=== PATIENT | male | born 1955 | race Caucasian/White ===

== ENCOUNTER 2017-02-27 16:24 | Emergency (ER) | payer OTHER ==
--- NOTE | 2017-02-27 17:08 | DIAGNOSTIC IMAGING REPORT ---
PROCEDURE: CT HEAD WITHOUT CONTRAST INDICATION: TRAUMA/INJURY TECHNIQUE: Axial CT images were acquired through the head. Coronal and sagittal reformations were created. COMPARISON: None. FINDINGS: No intracranial hemorrhage or extraaxial fluid collections. Ventricles are normal in size, shape and position. There is no mass, mass effect or midline shift. The appiah-white matter differentiation is normal. There is no edema. The calvarium is intact. The paranasal sinuses and mastoid air cells are normally aerated. The extracranial soft tissues and orbits are normal. IMPRESSION: 1. No CT evidence of acute intracranial process. 2. Findings discussed with Tino at 05:[address] scans at this facility use dose modulation, iterative reconstruction, and/or weight-based dosing when appropriate to reduce radiation dose to as low as reasonably achievable.
--- NOTE | 2017-02-27 17:37 | ED NURSING NOTES ---
Clinical Report - Nurses [facility] [address] [place] [address] 02/27/2017 16:23 Patient: EMEKA LOVE TRIAGE Triage time 16:Feb 27 2017. Acuity: LEVEL 4. Chief Complaint: INJURY TO HEAD and LEFT EYE (Patient was in WC, went out with relative and fell out of chair, lac on left eye). 16:38 02/27/17. SEPSIS SCREEN: Sepsis Screen. Negative (no infection suspected/documented). EMMETT COMA SCORE: [place] Coma Scale. --16:38 Carole Armenta R.N. 16:28 02/27/17. BP: unable to obtain. HR: 81. RR: 20. O2 saturation: 98% on room air. Temp: 99.4 F (temporal). Additional comments: Patient non verbal. Patient moving around too much for BP. --16:38 Carole Armenta R.N. Weight: 44 kg stated. Height/Length: 36 inches Per Patient. BMI: 52.7. --16:38 Carole Armenta R.N. Medications Ipratropium [place] HFA Inhalation (Aerosol Solution 17 mcg/act), daily as needed. --16:42 Carole Armenta R.N. Ofloxacin Ophthalmic (Solution 0.3 %) 4-6 drops. --16:43 Carole Armenta R.N. Gabapentin Oral (Capsule 300 mg) 1 capsule, 2x a day. --16:43 Carole Armenta R.N. Pantoprazole Sodium Oral (Tablet Delayed Release 40 mg) 1 tablet, daily. --16:44 Carole Armenta R.N. Propranolol HCl Oral (Tablet 60 mg) 1 tablet, daily. --16:44 Carole Armenta R.N. Nitrofurantoin Macrocrystal Oral (Capsule 50 mg) 1 capsule. --16:44 Carole Armenta R.N. Enalapril Maleate Oral (Tablet 20 mg) 1 tablet, 2x a day. --16:45 Carole Armenta R.N. Allergies Iodine. --16:31 Carole Armenta R.N. History Arrived by private vehicle. Historian: family. Accompanied by family. This occurred just prior to arrival. He sustained a laceration from a fall. Mechanism of injury: fell off a chair. 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 PAST MEDICAL HX: Tetanus status: up-to-date. SOCIAL HX: Never smoker. No alcohol use or drug use. No infectious disease exposure. ABUSE ASSESSMENT: No report of abuse. --16:38 Carole Armenta R.N. PROBLEMS: Abdominal Pain. Constipation. UTI - Urinary Tract Infection. Developmental Delay. Ear Infection. Spina Bifida Occulta. --16:32 Carole Armenta R.N. ADDITIONAL SURGERIES: Back Surgery. Bilat bka. Hernia Repair. Laparoscopy. Previous Abdominal Surgery. --16:32 Carole Armenta R.N. Interventions ID band on patient. To treatment room. --16:38 Carole Armenta R.N. PHYSICAL ASSESSMENT 16:39 02/27/17. To room via wheelchair. GENERAL / NEURO / PSYCH: Appears anxious. HEENT: Left eyebrow area: tenderness, swelling, erythema and superficial 0.5 cm laceration with controlled bleeding. Mucous membranes are pink. CVS: Capillary refill less than 2 seconds. BACK: ROM normal to the neck and back. SKIN: Skin is warm. --16:39 Carole Armenta R.N. NURSING PROGRESS NOTES 16:39 02/27/17. The plan of care for this patient has been created. Reassurance given. Two patient identifiers checked. Call light placed in reach. Side rails up x 2. Bed placed in lowest position. Brakes of bed on. Patient ready for evaluation- chart flagged and ED physician notified. --16:39 Carole Armenta R.N. Patient transported to CT by stretcher with tech. (16:41 Feb 27 2017). --16:41 Carole Armenta R.N. late entry - 16:45 02/27/17. ( Patients family at patients bedside). --08:39 Carole Armenta R.N. late entry - 08:37 02/28/17. Patient returned from CT by stretcher with tech. (16:55 Feb 27 2017). --08:37 Carole Armenta R.N. DISPOSITION / DISCHARGE Departure time: 17:50 Feb 27 2017. Condition at departure: improved. No learning barriers present. Discharge instructions provided and reviewed with the patient and family. Reviewed warnings. Reviewed medication(s). Treatments reviewed. Reviewed referrals. Patient and family verbalized understanding. Written instructions provided in Afghan. The patient was discharged home and accompanied by family. He left the Emergency Department in a wheelchair and via private vehicle. Family member driving. --17:50 Cindy Wilkins R.N. 17:49 02/27/17. BP: 122/78. HR: 90. RR: 18. O2 saturation: 98%. Temp: 98.4 F. Pain level now 0/10. --17:50 Cindy Wilkins R.N. Locked/Released at 02/28/2017 8:40 by Carole Armenta R.N.
--- NOTE | 2017-02-27 17:37 | ED ORDER SUMMARY ---
..... Patient: EMEKA LOVE OrderSheet [facility] VisitID: [id number] [address] [place] [address] 61y, M Registration Date/Time: 02/27/2017 ORDER SHEET Weight: 44.0 kg (stated) Allergies: Iodine GENERAL ORDERS: CT Head wo Cont Urgent (16:36 02/27/2017 Rayo Monaco) ([facility] 16:36 marcin) (16:53 Kameron) MEDICATION ORDERS: IV FLUIDS: ORDER SHEET NOTES: [Electronically signed by Alisson Jiménez P.A.-C (18:00 02/27/2017)] [Electronically signed by Carole Armenta R.N. (08:40 02/28/2017)] [Electronically locked/signed by Carole Armenta R.N. (08:40 02/28/2017)]
--- NOTE | 2017-02-27 17:37 | ED CLINICAL REPORT ---
Clinical Report - Physicians/Mid Levels [facility] [address] [place] [address] 02/27/2017 16:23 [id number] Time Seen: 17:02 Feb 27 2017. Arrived- By private vehicle. Historian- family (POA: sister). HISTORY OF PRESENT ILLNESS Chief Complaint: INJURY TO HEAD. Location of injuries- (head). The injury occurred just prior to arrival. The patient sustained a blow and laceration. Fell. Occurred on a street. The patient complains of mild pain. The patient sustained a blow to the head. No neck pain. (patient is wheelchair bound, with bilateral lower extremity amputation, with history of spina bifida. Patient is nonverbal, has otherwise been behaving his normal self. Laceration sustained to the head. Fall was from a small wheelchair forward. No LOC.). REVIEW OF SYSTEMS No nausea or chest pain. He sustained skin laceration. All systems otherwise negative, except as recorded above. PAST HISTORY Tetanus immunization status is up-to-date. Problems: Abdominal Pain. Constipation. UTI - Urinary Tract Infection. Developmental Delay. Ear Infection. Spina Bifida Occulta. Immunizations. Additional Surgeries: Back Surgery. Bilat bka. Hernia Repair. Laparoscopy. Previous Abdominal Surgery. Medications: Enalapril Maleate Oral (Tablet 20 mg) 1 tablet, 2x a day. Nitrofurantoin Macrocrystal Oral (Capsule 50 mg) 1 capsule. Propranolol HCl Oral (Tablet 60 mg) 1 tablet, daily. Pantoprazole Sodium Oral (Tablet Delayed Release 40 mg) 1 tablet, daily. Gabapentin Oral (Capsule 300 mg) 1 capsule, 2x a day. Ofloxacin Ophthalmic (Solution 0.3 %) 4-6 drops. Ipratropium [place] HFA Inhalation (Aerosol Solution 17 mcg/act), daily as needed. Allergies: Iodine. SOCIAL HISTORY Never smoker. No drug use. ADDITIONAL NOTES The nursing notes have been reviewed. PHYSICAL EXAM Appearance: Alert. Head: Left frontal area: No tenderness. Left pentecostal: No tenderness or swelling. Forehead: No tenderness or swelling. Eyes: Left eye: (lateral to left eye small lac 0.5 cm). ENT: No dental injury. Neck: Painless ROM. Neck non-tender. No vertebral tenderness. Posterior neck: No tenderness or laceration. CVS: Heart sounds normal. Pulses normal. Respiratory: Breath sounds normal. Chest nontender. No chest wall injury. Abdomen: Soft and nontender. No abdominal tenderness or guarding. Skin: (abrasion anterior bicep). Neuro: Zayra Coma Scale: 15- eyes open spontaneously (4); best verbal response- oriented x 3 (5); best motor response- obeys commands (6). Oriented X 3. Mood/affect normal. Speech normal. LABS, X-RAYS, AND EKG CT Head: (IMPRESSION: 1. No CT evidence of acute intracranial process. 2. Findings discussed with Tino at 05:[address] scans at this facility use dose modulation, iterative reconstruction, and/or weight-based dosing when appropriate to reduce radiation dose to as low as reasonably achievable. Electronically Final signed by:Luther Martell MD 02/27/2017 5:08:21 PM). PROGRESS AND PROCEDURES Laceration Repair: Time: 1744Feb 27 2017. Location: forehead. Time-out completed immediately before the procedure. Length: 1 cm. Complexity: simple (local anesthesia used and sutured). Wound depth/shape- linear and involving fascia. Wound is clean. Local anesthesia provided using LET and 1% lidocaine with epi. Wound explored and cleansed. Subcutaneous closure: interrupted 5-0 (2 sutures). Course of Care: CT of the head is unremarkable. No other signs of injury. Laceration procedure in the emergency department. Abrasion of the left bicep, full range of motion and no osseous tenderness. No signs of other injury in an otherwise non verbal patient. 02/27/2017 17:49 BP: 122/78. HR: 90. RR: 18. O2 saturation: 98%. Temp: 98.4 F. Patient is stable. Physical exam findings are improved. Symptoms better. Patient/family counseled. Disposition: Discharged. Condition: good. CLINICAL IMPRESSION Minor closed head injury. No loss of consciousness. No concussion or skull fracture. Single superficial laceration to the left periorbital area.Treatment of laceration not delayed. No infection or foreign body present. Abrasion to the left upper arm. INSTRUCTIONS Protect wound and keep wound area clean. Apply bacitracin twice daily. Sutures should be removed in seven days. (Electronically signed by Alisson Jiménez P.A.-C 02/27/2017 18:00)
--- NOTE | 2017-02-27 17:37 | ED ORDER SUMMARY ---
..... Patient: EMEKA LOVE OrderSheet [facility] VisitID: [id number] [address] [place] [place] [address] 61y, M Registration Date/Time: 02/27/2017 ORDER SHEET Weight: 44.0 kg (stated) Allergies: Iodine GENERAL ORDERS: CT Head wo Cont Urgent (16:36 02/27/2017 Rayo Monaco) ([facility] 16:36 marcin) (16:53 Kameron) MEDICATION ORDERS: IV FLUIDS: ORDER SHEET NOTES: [Electronically signed by Alisson Jiménez P.A.-C (18:00 02/27/2017)] [Electronically signed by Carole Armenta R.N. (08:40 02/28/2017)] [Electronically locked/signed by Carole Armenta R.N. (08:40 02/28/2017)]
--- NOTE | 2017-02-27 17:37 | ED CLINICAL REPORT ---
Clinical Report - Physicians/Mid Levels [facility] [address] [place] [address] 02/27/2017 16:23 [id number] Time Seen: 17:02 Feb 27 2017. Arrived- By private vehicle. Historian- family (POA: sister). HISTORY OF PRESENT ILLNESS Chief Complaint: INJURY TO HEAD. Location of injuries- (head). The injury occurred just prior to arrival. The patient sustained a blow and laceration. Fell. Occurred on a street. The patient complains of mild pain. The patient sustained a blow to the head. No neck pain. (patient is wheelchair bound, with bilateral lower extremity amputation, with history of spina bifida. Patient is nonverbal, has otherwise been behaving his normal self. Laceration sustained to the head. Fall was from a small wheelchair forward. No LOC.). REVIEW OF SYSTEMS No nausea or chest pain. He sustained skin laceration. All systems otherwise negative, except as recorded above. PAST HISTORY Tetanus immunization status is up-to-date. Problems: Abdominal Pain. Constipation. UTI - Urinary Tract Infection. Developmental Delay. Ear Infection. Spina Bifida Occulta. Immunizations. Additional Surgeries: Back Surgery. Bilat bka. Hernia Repair. Laparoscopy. Previous Abdominal Surgery. Medications: Enalapril Maleate Oral (Tablet 20 mg) 1 tablet, 2x a day. Nitrofurantoin Macrocrystal Oral (Capsule 50 mg) 1 capsule. Propranolol HCl Oral (Tablet 60 mg) 1 tablet, daily. Pantoprazole Sodium Oral (Tablet Delayed Release 40 mg) 1 tablet, daily. Gabapentin Oral (Capsule 300 mg) 1 capsule, 2x a day. Ofloxacin Ophthalmic (Solution 0.3 %) 4-6 drops. Ipratropium [place] HFA Inhalation (Aerosol Solution 17 mcg/act), daily as needed. Allergies: Iodine. SOCIAL HISTORY Never smoker. No drug use. ADDITIONAL NOTES The nursing notes have been reviewed. PHYSICAL EXAM Appearance: Alert. Head: Left frontal area: No tenderness. Left bahai: No tenderness or swelling. Forehead: No tenderness or swelling. Eyes: Left eye: (lateral to left eye small lac 0.5 cm). ENT: No dental injury. Neck: Painless ROM. Neck non-tender. No vertebral tenderness. Posterior neck: No tenderness or laceration. CVS: Heart sounds normal. Pulses normal. Respiratory: Breath sounds normal. Chest nontender. No chest wall injury. Abdomen: Soft and nontender. No abdominal tenderness or guarding. Skin: (abrasion anterior bicep). Neuro: Zayra Coma Scale: 15- eyes open spontaneously (4); best verbal response- oriented x 3 (5); best motor response- obeys commands (6). Oriented X 3. Mood/affect normal. Speech normal. LABS, X-RAYS, AND EKG CT Head: (IMPRESSION: 1. No CT evidence of acute intracranial process. 2. Findings discussed with Tino at 05:[address] scans at this facility use dose modulation, iterative reconstruction, and/or weight-based dosing when appropriate to reduce radiation dose to as low as reasonably achievable. Electronically Final signed by:Luther Martell MD 02/27/2017 5:08:21 PM). PROGRESS AND PROCEDURES Laceration Repair: Time: 1744Feb 27 2017. Location: forehead. Time-out completed immediately before the procedure. Length: 1 cm. Complexity: simple (local anesthesia used and sutured). Wound depth/shape- linear and involving fascia. Wound is clean. Local anesthesia provided using LET and 1% lidocaine with epi. Wound explored and cleansed. Subcutaneous closure: interrupted 5-0 (2 sutures). Course of Care: CT of the head is unremarkable. No other signs of injury. Laceration procedure in the emergency department. Abrasion of the left bicep, full range of motion and no osseous tenderness. No signs of other injury in an otherwise non verbal patient. 02/27/2017 17:49 BP: 122/78. HR: 90. RR: 18. O2 saturation: 98%. Temp: 98.4 F. Patient is stable. Physical exam findings are improved. Symptoms better. Patient/family counseled. Disposition: Discharged. Condition: good. CLINICAL IMPRESSION Minor closed head injury. No loss of consciousness. No concussion or skull fracture. Single superficial laceration to the left periorbital area.Treatment of laceration not delayed. No infection or foreign body present. Abrasion to the left upper arm. INSTRUCTIONS Protect wound and keep wound area clean. Apply bacitracin twice daily. Sutures should be removed in seven days. (Electronically signed by Alisson Jiménez P.A.-C 02/27/2017 18:00)
--- NOTE | 2017-02-27 17:37 | ED NURSING NOTES ---
Clinical Report - Nurses [facility] [address] [place] [address] 02/27/2017 16:23 Patient: EMEKA LOVE TRIAGE Triage time 16:Feb 27 2017. Acuity: LEVEL 4. Chief Complaint: INJURY TO HEAD and LEFT EYE (Patient was in WC, went out with relative and fell out of chair, lac on left eye). 16:38 02/27/17. SEPSIS SCREEN: Sepsis Screen. Negative (no infection suspected/documented). EMMETT COMA SCORE: [place] Coma Scale. --16:38 Carole Armenta R.N. 16:28 02/27/17. BP: unable to obtain. HR: 81. RR: 20. O2 saturation: 98% on room air. Temp: 99.4 F (temporal). Additional comments: Patient non verbal. Patient moving around too much for BP. --16:38 Carole Armenta R.N. Weight: 44 kg stated. Height/Length: 36 inches Per Patient. BMI: 52.7. --16:38 Carole Armenta R.N. Medications Ipratropium [place] HFA Inhalation (Aerosol Solution 17 mcg/act), daily as needed. --16:42 Carole Armenta R.N. Ofloxacin Ophthalmic (Solution 0.3 %) 4-6 drops. --16:43 Carole Armenta R.N. Gabapentin Oral (Capsule 300 mg) 1 capsule, 2x a day. --16:43 Carole Armenta R.N. Pantoprazole Sodium Oral (Tablet Delayed Release 40 mg) 1 tablet, daily. --16:44 Carole Armenta R.N. Propranolol HCl Oral (Tablet 60 mg) 1 tablet, daily. --16:44 Carole Armenta R.N. Nitrofurantoin Macrocrystal Oral (Capsule 50 mg) 1 capsule. --16:44 Carole Armenta R.N. Enalapril Maleate Oral (Tablet 20 mg) 1 tablet, 2x a day. --16:45 Carole Armenta R.N. Allergies Iodine. --16:31 Carole Armenta R.N. History Arrived by private vehicle. Historian: family. Accompanied by family. This occurred just prior to arrival. He sustained a laceration from a fall. Mechanism of injury: fell off a chair. 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 PAST MEDICAL HX: Tetanus status: up-to-date. SOCIAL HX: Never smoker. No alcohol use or drug use. No infectious disease exposure. ABUSE ASSESSMENT: No report of abuse. --16:38 Carole Armenta R.N. PROBLEMS: Abdominal Pain. Constipation. UTI - Urinary Tract Infection. Developmental Delay. Ear Infection. Spina Bifida Occulta. --16:32 Carole Armenta R.N. ADDITIONAL SURGERIES: Back Surgery. Bilat bka. Hernia Repair. Laparoscopy. Previous Abdominal Surgery. --16:32 Carole Armenta R.N. Interventions ID band on patient. To treatment room. --16:38 Carole Armenta R.N. PHYSICAL ASSESSMENT 16:39 02/27/17. To room via wheelchair. GENERAL / NEURO / PSYCH: Appears anxious. HEENT: Left eyebrow area: tenderness, swelling, erythema and superficial 0.5 cm laceration with controlled bleeding. Mucous membranes are pink. CVS: Capillary refill less than 2 seconds. BACK: ROM normal to the neck and back. SKIN: Skin is warm. --16:39 Carole Armenta R.N. NURSING PROGRESS NOTES 16:39 02/27/17. The plan of care for this patient has been created. Reassurance given. Two patient identifiers checked. Call light placed in reach. Side rails up x 2. Bed placed in lowest position. Brakes of bed on. Patient ready for evaluation- chart flagged and ED physician notified. --16:39 Carole Armenta R.N. Patient transported to CT by stretcher with tech. (16:41 Feb 27 2017). --16:41 Carole Armenta R.N. late entry - 16:45 02/27/17. ( Patients family at patients bedside). --08:39 Carole Armenta R.N. late entry - 08:37 02/28/17. Patient returned from CT by stretcher with tech. (16:55 Feb 27 2017). --08:37 Carole Armenta R.N. DISPOSITION / DISCHARGE Departure time: 17:50 Feb 27 2017. Condition at departure: improved. No learning barriers present. Discharge instructions provided and reviewed with the patient and family. Reviewed warnings. Reviewed medication(s). Treatments reviewed. Reviewed referrals. Patient and family verbalized understanding. Written instructions provided in Kyrgyz. The patient was discharged home and accompanied by family. He left the Emergency Department in a wheelchair and via private vehicle. Family member driving. --17:50 Cindy Wilkins R.N. 17:49 02/27/17. BP: 122/78. HR: 90. RR: 18. O2 saturation: 98%. Temp: 98.4 F. Pain level now 0/10. --17:50 Cindy Wilkins R.N. Locked/Released at 02/28/2017 8:40 by Carole Armenta R.N.
--- NOTE | 2017-02-28 08:40 | ED MED RECONCILIATION SUMMARY ---
Patient: EMEKA LOVE Medication Reconciliation Report [facility] VisitID: [id number] [address] [place] [address] 61y, M Registration Date/Time: 02/27/2017 Weight: 44.0 kg Height/Length: 36 in. BMI: 52.7 ALLERGIES: Iodine The patient's Home Medications are listed below: THE FOLLOWING MEDICATIONS NEED TO BE RECONCILED: Enalapril Maleate Oral (20 mg) 1 tablet, 2x a day Gabapentin Oral (300 mg) 1 capsule, 2x a day Ipratropium [place] HFA Inhalation (17 mcg/act), daily Nitrofurantoin Macrocrystal Oral (50 mg) 1 capsule Ofloxacin Ophthalmic (0.3 %) 4-6 drops Pantoprazole Sodium Oral (40 mg) 1 tablet, daily Propranolol HCl Oral (60 mg) 1 tablet, daily The source(s) of the original Home Medication information: Not obtained. The following Medications were given to the patient in the Emergency Department: None. The following Medications were prescribed to the patient: None.
--- NOTE | 2017-02-28 08:40 | ED MAR SUMMARY ---
..... Medication Administration Record [facility] [address] [place], [place] [id number] Patient: EMEKA LOVE Visit ID: [id number] 61y, M Weight: 44.0 kg Height/Length: 36 in BMI: 52.7 ALLERGIES: Iodine
--- NOTE | 2017-02-28 08:40 | ED MED RECONCILIATION SUMMARY ---
Patient: EMEKA LOVE Medication Reconciliation Report [facility] VisitID: [id number] [address] [place] [address] 61y, M Registration Date/Time: 02/27/2017 Weight: 44.0 kg Height/Length: 36 in. BMI: 52.7 ALLERGIES: Iodine The patient's Home Medications are listed below: THE FOLLOWING MEDICATIONS NEED TO BE RECONCILED: Enalapril Maleate Oral (20 mg) 1 tablet, 2x a day Gabapentin Oral (300 mg) 1 capsule, 2x a day Ipratropium [place] HFA Inhalation (17 mcg/act), daily Nitrofurantoin Macrocrystal Oral (50 mg) 1 capsule Ofloxacin Ophthalmic (0.3 %) 4-6 drops Pantoprazole Sodium Oral (40 mg) 1 tablet, daily Propranolol HCl Oral (60 mg) 1 tablet, daily The source(s) of the original Home Medication information: Not obtained. The following Medications were given to the patient in the Emergency Department: None. The following Medications were prescribed to the patient: None.
--- NOTE | 2017-02-28 08:40 | ED MAR SUMMARY ---
..... Medication Administration Record [facility] [address] [place], [place] [id number] Patient: EMEKA LOVE Visit ID: [id number] 61y, M Weight: 44.0 kg Height/Length: 36 in BMI: 52.7 ALLERGIES: Iodine
--- NOTE | 2017-02-28 08:40 | ED DISCHARGE INSTRUCTIONS ---
Patient: EMEKA LOVE General Instructions [facility] VisitID: [id number] [place] [address] 61y, M Registration Date/Time: 02/27/2017 Minor closed head injury. No loss of consciousness. No concussion or skull fracture. Single superficial laceration to the left periorbital area.Treatment of laceration not delayed. No infection or foreign body present. Abrasion to the left upper arm. INSTRUCTIONS Protect wound and keep wound area clean. Apply bacitracin twice daily. Sutures should be removed in seven days. ADDITIONAL INFORMATION Head Injury, No Wake-Up (Adult) You have had a head injury. It does not appear serious at this time. Symptoms of a more serious problem (concussion, bruising, or bleeding in the brain) may appear later. Therefore, watch for the WARNING SIGNS listed below. Home Care: Your healthcare provider will tell you whether its okay to drive. If so, you can drive yourself home. For the next day or so, be careful when driving or using heavy machinery until you are sure you have no delayed symptoms. During the next 24 hours someone must stay with you to check for the signs below. It is not necessary to stay awake or be awakened during the night. If you have swelling of the face or scalp, apply an ice pack (ice cubes in a plastic bag, wrapped in a towel) for 20 minutes. Do this every 1-2 hours until the swelling starts to go down. Do not use aspirin or ibuprofen (Motrin, Advil) after a head injury.You may use acetaminophen (Tylenol)to control pain, unless another pain medicine was prescribed. [NOTE: If you have chronic liver or kidney disease or ever had a stomach ulcer or GI bleeding, talk with your doctor before using these medicines.] For the next 24 hours: Do not take alcohol, sedatives or medicines that make you sleepy. Avoid strenuous activities. No lifting or straining. If you have had any symptoms of a concussion today (nausea, vomiting, dizziness, confusion, headache, memory loss or if you were knocked out), do not return to sports or any activity that could result in another head injury until all symptoms are gone and you have been cleared by your doctor. A second head injury before fully recovering from the first one can lead to serious brain injury. Follow Up with your doctor if symptoms are not improving after 24 hours, or as directed. [NOTE: A radiologist will review any X-rays or CT scans that were taken. We will notify you of any new findings that may affect your care.] Get Prompt Medical Attention if any of the followingWARNING SIGNS occur: Repeated vomiting Severe or worsening headache or dizziness Unusual drowsiness, or unable to awaken as usual Confusion or change in behavior or speech, memory loss, blurred vision Convulsion (seizure) Increasing scalp or face swelling Redness, warmth or pus from the swollen area Fluid drainage or bleeding from the nose or ears Laceration, Face (Suture Or Tape) Alaceration is a cut through the skin. This will require stitches if it is deep. Minor cuts may be treated with surgical tape. Home care The following guidelines will help you care for your laceration at home: If a bandage was applied and it becomes wet or dirty, replace it. Otherwise, leave it in place for the first 24 hours, then change it once a day or as directed. If sutures were used, clean the wound daily: After removing the bandage, wash the area with soap and water. Use a wet cotton swab to loosen and remove any blood or crust that forms. After cleaning, keep the wound clean and dry. Talk with your doctor before applying any antibiotic ointment to the wound. Reapply a fresh bandage. You may remove the bandage to shower as usual after the first 24 hours, but do not soak the area in water (no swimming) until the sutures are removed. If surgical tape was used, keep the area clean and dry. If it becomes wet, blot it dry with a towel. The doctor may prescribe an antibiotic cream or ointment to prevent infection. Do not stop taking this medication until you have have finished the prescribed course or the doctor tells you to stop. The doctor may also prescribe medications for pain. Follow the doctor's instructions for taking these medications.If you have chronic liver or kidney disease or ever had a stomach ulcer or GI bleeding, talk with your doctor before using these medicines. Follow-up care Follow up with your health care provider. Most facial cuts heal in five days with no problem. However, even with proper treatment, a wound infection sometimes occurs. Therefore, check the wound daily for the warning signs listed below. Stitches should not be left in the face for more thanfivedays; otherwise, permanent stitch parks may form. If surgical tape closures were used, you may remove them yourself afterfivedays, if they have not fallen off by then. When to seek medical care Get prompt medical attention if any of these occur: Increasing pain in the wound Redness, swelling, or pus coming from the wound If sutures come apart or fall out before 5 days If the surgical tape closures fall off before 5 days, or the wound edges reopen Fever of 100.4F (38C) or higher, or as directed by your health care provider Bleeding not controlled by direct pressure Abrasions Abrasions are skin scrapes. Their treatment depends on how large and deep the abrasion is. Home Care: If you were given a bandage, change it once a day. If your bandage sticks to the wound, soak it in warm water until it loosens. Wash the area with soap and water to remove all the cream/ointment. You may do this in a sink, under a tub faucet or shower. Rinse off the soap and pat dry with a clean towel. Reapply cream/ointment according to your doctor's instructions. This will prevent infection and help prevent the bandage from sticking. Cover the wound with a fresh non-stick bandage (Telfa). Repeat steps 1 to 4 daily, or as directed by your doctor. If the bandage becomes wet or dirty, change it as soon as possible. You may use acetaminophen (Tylenol) or ibuprofen (Motrin, Advil) to control pain, unless another pain medicine was prescribed. [ NOTE : If you have chronic liver or kidney disease or ever had a stomach ulcer or GI bleeding, talk with your doctor before using these medicines.] Do not use ibuprofen in children under six months of age. Follow Up with your physician or this facility as directed by our staff. Most skin wounds heal within ten days. However, an infection may occur despite proper treatment. Therefore, look for the early signs of infection listed below. Get Prompt Medical Attention if any of the following occur: Increasing pain in the wound Increasing redness or swelling Pus coming from the wound Fever of 100.4F (38C) or higher, or as directed by your healthcare provider Laceration, Face (Suture Or Tape) Alaceration is a cut through the skin. This will require stitches if it is deep. Minor cuts may be treated with surgical tape. Home care The following guidelines will help you care for your laceration at home: If a bandage was applied and it becomes wet or dirty, replace it. Otherwise, leave it in place for the first 24 hours, then change it once a day or as directed. If sutures were used, clean the wound daily: After removing the bandage, wash the area with soap and water. Use a wet cotton swab to loosen and remove any blood or crust that forms. After cleaning, keep the wound clean and dry. Talk with your doctor before applying any antibiotic ointment to the wound. Reapply a fresh bandage. You may remove the bandage to shower as usual after the first 24 hours, but do not soak the area in water (no swimming) until the sutures are removed. If surgical tape was used, keep the area clean and dry. If it becomes wet, blot it dry with a towel. The doctor may prescribe an antibiotic cream or ointment to prevent infection. Do not stop taking this medication until you have have finished the prescribed course or the doctor tells you to stop. The doctor may also prescribe medications for pain. Follow the doctor's instructions for taking these medications.If you have chronic liver or kidney disease or ever had a stomach ulcer or GI bleeding, talk with your doctor before using these medicines. Follow-up care Follow up with your health care provider. Most facial cuts heal in five days with no problem. However, even with proper treatment, a wound infection sometimes occurs. Therefore, check the wound daily for the warning signs listed below. Stitches should not be left in the face for more thanfivedays; otherwise, permanent stitch parks may form. If surgical tape closures were used, you may remove them yourself afterfivedays, if they have not fallen off by then. When to seek medical care Get prompt medical attention if any of these occur: Increasing pain in the wound Redness, swelling, or pus coming from the wound If sutures come apart or fall out before 5 days If the surgical tape closures fall off before 5 days, or the wound edges reopen Fever of 100.4F (38C) or higher, or as directed by your health care provider Bleeding not controlled by direct pressure You have been given the following additional information: HEAD INJURY, No Wake-Up (Adult) Laceration, Face (Suture Or Tape) Abrasion Laceration, Face (Suture Or Tape) (Electronically signed by Alisson Jiménez P.A.-C 02/27/2017 18:00)
== END 2017-02-27 17:45 | disposition home or self-care (01) ==
LOC: ED SRH 16:24
PROC: 0HQ1XZZ Repair Face Skin, External Approach (ICD-10-PCS; principal; 2017-02-27)
DX: S01.81XA Laceration without foreign body of other part of head, initial encounter (principal); S40.812A Abrasion of left upper arm, initial encounter; W05.0XXA Fall from non-moving wheelchair, initial encounter; Y93.9 Activity, unspecified; Y92.410 Unspecified street and highway as the place of occurrence of the external cause; Y99.9 Unspecified external cause status